=== PATIENT | female | born 1990 | race Caucasian/White ===

== ENCOUNTER 2016-12-15 19:20 | Emergency (ER) | payer BC ==
[~2016-12-15] VITALS: Ht 167.6 cm; Wt 81.6 kg
[2016-12-15 19:34] VITALS: BP 126/60
--- NOTE | 2016-12-15 20:10 | PHYS DOC ---
General Chief Complaint: VOMITING IN Stated Complaint: VOMITING,DIARRHEA X 3 DAYS 29 WKS Time Seen by MD: 19:57 Source: patient, family Problems: History of Present Illness Initial Comments Patient here with mother for vomiting and diarrhea. Patient began to be ill on Tuesday. She had 2 episodes of vomiting at work on Tuesday and several episodes of diarrhea. She seemed to do better when she went for visit yesterday , but today had an episode of vomiting once again as well as 6-8 episodes of diarrhea. There is no blood or bilious material noted in the vomit or the stool. She's not had anything to eat or drink since her last episode of emesis. Mother is concerned about the possibility of dehydration. Patient's had no distinct fever or chills. There is no runny nose or sore throat. There is no chest pain or shortness of breath. She has had the nausea and vomiting. She did have some midabdominal pain which she felt was due to retching earlier today but none now. She denies any change in bladder habits. There is no vaginal bleeding or discharge. She states she is 29 weeks continues to feel the baby move without difficulty. There is no focal extremity or neurologic complaints. Patient's really done nothing for this at home and notes no increased or decreasing factors. There is no known sick contacts and no bad or spoiled food known is well. Patient's past medical history is remarkable for anxiety and depression. She is on Zoloft. This is her first . She says things are going well and she is on vitamins. She is a nonsmoker and nonuser of ethanol. Allergies: Coded Allergies: No Known Drug Allergies (Unverified , 12/15/16) Past Medical History Medical History: no pertinent history Psychosocial History: anxiety, depression LMP (Females 10-50): Social History Smoker: non-smoker Alcohol: none Review of Systems All Other Systems: Reviewed and Negative Physical Exam General Appearance: WD/WN, no apparent distress Neck: full range of motion, supple, normal inspection Respiratory: lungs clear, normal breath sounds, no respiratory distress Cardiovascular: regular rate, rhythm, no edema Peripheral Pulses: 0 dorsalis pedis (R) Gastrointestinal: non tender, soft, other Back: no CVA tenderness, no vertebral tenderness Extremities: non-tender, normal inspection, no pedal edema Neurologic/Psychiatric: alert, normal mood/affect, oriented x 3 Skin: normal color Lymphatic: no adenopathy Comments Generally this a well-developed well-nourished white female in no acute distress. Vitals are as noted. Pertinent findings on physical exam shows the chest to be clear. Cardiac vascular exam shows regular rate and rhythm without murmur. The abdomen is soft. She noted have a gravid uterus above the umbilicus consistent with dates. heart tones are heard by the physician patient and mother strongly at 150 in the left lower quadrant with Doppler device. The abdomen is nontender without other masses or organomegaly. There are no peritoneal findings. Back shows no CVA tenderness. Extremities are clear. Patient is awake alert oriented and cooperative. Remainder of physical exam is clinically unremarkable. Orders, Labs, Meds Old charts note no prior ER visits within the current system. Labs show a stable CBC. Potassium is minimally decreased at 3.2. Renal functions intact. Urinalysis shows a mild UTI with 11-20 white cells, positive nitrate, and small leukocyte esterase. 2315 Patient resting comfortably in the ED. Did apologize for delays in care related to obtain the urine sample results. She, her mother, and her boyfriend in the room voice understanding and are very gracious about this. She has had no further nausea vomiting is able tolerate Sprite without difficulty. She continues to have some diarrhea and some cramping sensations in the abdomen. I discussed with the patient and family the uncertain cause of the symptoms. This may simply be some gastroenteritis which is working its way through. Certainly the appears to be doing well, the baby is moving well, and there is good heart tones. There is no vaginal bleeding. She does not appear grossly dehydrated. We discussed home care at this time which would included rest, increasing fluids, and appropriate medication for pain and abdominal discomfort. I will write her prescriptions for likely just as well as for Bentyl for abdominal cramps. In addition, she may have a mild UTI which currently is asymptomatic. We'll go and get her started on some amoxicillin for coverage. We discussed the need to follow-up with her primary care provider as well as her provider, or return to the ER immediately as needed if worsen anyway. She specifically voices understanding of the need to return for persistent vomiting despite medication, at which point she may need to be admitted to prevent dehydration. She looks well, in no acute discomfort or stress, okay for discharge home at this time. YASMINE FLOYD MD Dec 15, 2016 20:10
[2016-12-15] MEDS ORDERED: PROMETHAZINE 12.5 MG in IV NORMAL SALINE 50ML 50 ML IV PRN (20:15)
[2016-12-15] MEDS ORDERED: IV NORMAL SALINE 1,000ML 1,000 ML IV ONE (20:45)
[2016-12-15 21:03] LABS: BASO % 0 % (0-3); EOS % 1 % (0-3); HEMATOCRIT 35.8 % (36.0-47.0); HEMOGLOBIN 11.9 g/dL (12.0-15.5); LYMPH # 0.8 x10^3/uL (1.0-4.8); LYMPH % 11 % (24-48); MEAN CORPUSCULAR HEMOGLOBIN 31 pg (25-35); MEAN CORPUSCULAR HGB CONC 33 g/dL (31-37); MEAN CORPUSCULAR VOLUME 93 fL (79-100); MONO # 0.6 x10^3/uL (0.0-1.1); MONO % 7 % (0-9); NEUT # 6.1 x10^3uL (1.8-7.7); NEUT % 81 % (31-73); PLATELET COUNT 212 x10^3/uL (140-400); RED BLOOD COUNT 3.86 x10^6/uL (3.50-5.40); RED CELL DISTRIBUTION WIDTH 13.1 % (11.5-14.5); WHITE BLOOD COUNT 7.6 x10^3/uL (4.0-11.0)
[2016-12-15 21:15] LABS: ALBUMIN/GLOBULIN RATIO 0.7 (1.0-1.7); CALCIUM 8.5 mg/dL (8.5-10.1); CREATININE 0.7 mg/dL (0.6-1.0); GFR 101.1; POTASSIUM 3.2 mmol/L (3.5-5.1); TOTAL BILIRUBIN 0.4 mg/dL (0.2-1.0); TOTAL PROTEIN 7.3 g/dL (6.4-8.2)
[2016-12-15 22:11] LABS: CLARITY,URINE TURBID; COLOR,URINE AMBER
[2016-12-15 22:12] LABS: BILIRUBIN,URINE NEG (NEG); GLUCOSE,URINE NEG (NEG)
[2016-12-15 22:14] LABS: NITRITE,URINE POS (NEG); UROBILINOGEN,URINE 0.2 mg/dL (0.2 mg/dL)
[2016-12-15 22:15] LABS: BACTERIA,URINE 0 /HPF (0-FEW); SQUAMOUS EPITHELIAL CELL,UR FEW /LPF
[2016-12-15 22:16] LABS: AMORPHOUS SEDIMENT,UR PRESENT /HPF
== END 2016-12-15 23:45 | disposition home or self-care (01) ==
LOC: ER 19:20
DX: O21.9 Vomiting of pregnancy, unspecified (principal); R11.2 Nausea with vomiting, unspecified; R19.7 Diarrhea, unspecified; R10.9 Unspecified abdominal pain; Z3A.29 29 weeks gestation of pregnancy
CPT/HCPCS: 36415; 80053; 81001; 85027; 96360; 99284-25; J7030